=== PATIENT | male | born 1975 | race Caucasian/White ===

== ENCOUNTER 2021-07-10 15:59 | Emergency (ER) | payer MEDICAID, OTHER ==
[~2021-07-10] VITALS: Ht 177.8 cm; Wt 100.0 kg
[2021-07-10 16:06] VITALS: BP 169/114
[2021-07-10] MEDS ORDERED: SODIUM CHLORIDE 0.9% 1,000 ML IV ONE (17:00)
== END 2021-07-10 16:59 | disposition left against medical advice (07) ==
LOC: ER 15:59
DX: F10.19 Alcohol abuse with unspecified alcohol-induced disorder (principal); Y90.9 Presence of alcohol in blood, level not specified; F17.210 Nicotine dependence, cigarettes, uncomplicated
CPT/HCPCS: 99283; J7030